=== PATIENT | female | born 1945 | race Caucasian/White ===

== ENCOUNTER → 2016-12-19 | Outpatient (CLI) | payer OTHER ==
[~2016-12-19] MED LIST: ASPI-535 PO; ATEN50TA PO; IBUP-1542 PO; LETR2.5T11 PO; NA P133E3 RC; NAPR-260 PO; POLY17PO6 PO; PRAV40TA76 PO
== END | disposition home or self-care (01) ==
LOC: HKI 10:49
PROVIDERS: ATTEND Orthopaedic Surgery
DX: Z47.1 Aftercare following joint replacement surgery (principal); Z96.651 Presence of right artificial knee joint; M17.11 Unilateral primary osteoarthritis, right knee; I10 Essential (primary) hypertension; E78.00 Pure hypercholesterolemia, unspecified; Z85.3 Personal history of malignant neoplasm of breast
CPT/HCPCS: G0463

== ENCOUNTER 2017-08-27 08:26 | Emergency (ER) | END 2017-08-27 10:14 | disposition home or self-care (01) ==

== ENCOUNTER 2017-09-12 11:12 | Emergency (ER) | END 2017-09-12 12:40 | disposition home or self-care (01) ==

== ENCOUNTER 2017-09-17 08:37 | Emergency (ER) | END 2017-09-17 11:29 | disposition home or self-care (01) ==

== ENCOUNTER 2018-01-15 10:43 | Observation (INO) | END 2018-01-17 12:45 | disposition home or self-care (01) ==